=== PATIENT | male | born 1995 | race Asian ===

== ENCOUNTER 2021-12-25 21:41 | Emergency (ER) | payer BC ==
[~2021-12-25] VITALS: Ht 172.7 cm; Wt 65.8 kg
[2021-12-25 21:41] VITALS: BP_SYST 144
--- NOTE | 2021-12-25 21:41 | NUR ---
Patient to ER bed 07 to gown for evaluation. Side rails up. Report given to AUGUST DUNN
--- NOTE | 2021-12-25 21:58 | NUR ---
Pt brought self in to ED due to injury to back of R lower extremity while playing basketball. States he felt a "pop" and pain started shortly. Rates pain a 05/08. Pt came in using crutches. Appears in no acute distress. Breathing adequately on RA. Denies any medical hx.
--- NOTE | 2021-12-25 22:12 | NUR ---
RAD at bedside for imaging.
[2021-12-25] MEDS ORDERED: IBUP-1971 PO (22:32)
--- NOTE | 2021-12-25 22:48 | NUR ---
Applied a short leg posterior spliint & demostrated crutches.
--- NOTE | 2021-12-25 22:48 | NUR ---
Splint applied, pt denied any pain/discomfort to site post application. Cap refill assessed and wnl. Skin color appears normal, (-) pallor tone.
[2021-12-25] MEDS ORDERED: IBUPROFEN 800 MG TABLET PO ONE (23:00)
[2021-12-25 23:11] VITALS: BP_SYST 120
--- NOTE | 2021-12-25 23:16 | NUR ---
Patient given written and verbal discharge instructions and verbalizes understanding. ER MD discussed with patient the results and treatment provided. Patient in stable condition. ID arm band removed. Rx of Motrin 800 mg sent to pharmacy. Patient educated on pain management and to follow up with PMD. Opportunity for questions provided and answered. Medication side effect fact sheet provided.
== END 2021-12-25 23:11 | disposition home or self-care (01) ==
LOC: SED 21:41
DX: S99.911A Unspecified injury of right ankle, initial encounter (principal); Z79.899 Other long term (current) drug therapy; X50.0XXA Overexertion from strenuous movement or load, initial encounter; Y93.67 Activity, basketball; Y92.89 Other specified places as the place of occurrence of the external cause; Y99.8 Other external cause status
CPT/HCPCS: 73590-TC; 99283